=== PATIENT | male | born 1970 | race Caucasian/White ===

== ENCOUNTER 2019-08-14 22:46 | Emergency (ER) | payer SELFPAY ==
--- NOTE | 2019-08-14 00:20 | DI.RAD_ITS ---
EXAM: XR CHEST 2V PA LATERAL CLINICAL HISTORY: SOB. TECHNIQUE: 2D digital imaging was performed. COMPARISON: No exams were available for comparison FINDINGS: LUNGS: Clear. No pleural abnormality seen. HEART: Normal. MEDIASTINUM: Normal. OTHER FINDINGS:Normal. BONE:Normal. IMPRESSION: No acute pulmonary findings.
[2019-08-14 23:01] VITALS: BP 149/90; PULSE 110; RESP 24; TEMP 36.5; O2SAT 93
--- NOTE | 2019-08-14 23:16 | W.ED.GENAD ---
Discharge Plan Disposition Patient Disposition: HOME Condition: Stable Discharge Details Chief Complaint: SOB Clinical Impression: Shortness of breath Primary Care Provider: Shala Godoy ED Provider: Alec Dawson Home Meds and New Rx's Prescriptions: New prednisone 20 mg tablet 60 mg PO DAILY Qty: 15 RF: 0 Discharge Instructions Additional Instructions: You are being treated for possible copd. You need to follow up with a primary care provider for testing for COPD and also sleep apnea and I have placed you on our follow up list to try and help get set up with a primary care provider if you feel your shortness of breath is worsening despite the inhaler, or have severe pain or high fevers return to the emergency department Discharge Data Discharge Date/Time-TO BE ENTERED AT DEPARTURE: 08/15/19 02:55 Medical Decision Making <ELIDA Jackson - Last Filed: 08/15/19 23:53> Is a 49-year-old patient presenting to the emergency room this evening for complaints of acute shortness of breath which developed prior to arrival. Patient reports he had a normal day, worked at the [employer] had no difficulty working or dyspnea on exertion. Went home had a few beers then dinner went to bed. Patient awoke approximately 1-1/2 hours after going to bed feeling somewhat flushed and having difficulty breathing. Patient began taking his clothes off as he felt hot. Partner reports this is very atypical behavior. Patient reports he is aware of tonight's events. Patient denies any chest pain, or any other sites of pain. Patient does report a cough which he has had for greater than 1 month after having a viral illness and he attributed it to a bronchitis. Patient denies fevers or chills. Patient at this time reports he does feel dry mouth. Patient denies abdominal pain or distention. Denies bowel changes or blood in stools recently. Patient denies any abnormal palpitations or heart racing this evening. Patient reports he has otherwise been eating and drinking without difficulty. On exam patient's breath sounds are clear with somewhat diminished lung bases bilaterally. Patient does have mild increased respiratory effort per partner at the bedside. Patient's initial vitals do reveal tachycardia with a heart rate of 110 mild hypertension O2 sat of 93. Patient is a daily smoker. Patient takes no daily medications. Has no diagnosed medical problems. Labs ordered as well as chest x-ray, EKG and IV fluid. Signed out to Dr. Dawson who recommends DuoNeb as well as Solu-Medrol both ordered. <Alec Dawson MD - Last Filed: 08/15/19 02:45> labs and xray unremarkable and he feels much better and has no symptoms now, will continue to monitor and repeat troponin. Did feel better with neb so could have copd, does desaturate when sleeping as well so likely has undiagnosed sleep apnea pt remains stable and asymptoamtic, second troponin negative so feel he can be d/c'd. Placed on f/u list to see pcp gaby for workup of copd and also sleep apnea, return precautions given Imaging Data Radiologic Study: Attestation: I personally reviewed and interpreted this imaging study as follows: Imaging: X-Ray Radiologist's impression: no acute findings Lab Data Lab results reviewed: Yes I reviewed the patient's lab results. ECG Data Attestation: I personally reviewed and interpreted this ECG (s) as follows: Prior ECG tracings: not available for review Interpretation: sinus rhythm, rate of 101 HPI <ELIDA Jackson - Last Filed: 08/15/19 23:53> General Date/Time Provider Initiated Documentation: 08/14/19 22:47. HPI Narrative: Is a 49-year-old patient presenting to the emergency room this evening for shortness of breath. 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 Went home had 2 drinks then dinner. Patient went to bed. Patient awoke about an hour and a half after laying down for bed with acute onset of shortness of breath. Patient felt flushed during that time but denied any sites of pain. Patient denied headache, dizziness, nausea, vomiting, chest pain, back pain, jaw pain or radiating symptoms. Denies abdominal pain. Denies any history of GI bleeding. Patient reports he has been eating and drinking without difficulty recently. Patient reports he has had a cough for approximately 1 to 1-1/2 months which began as a cold. Patient felt that the cough was just persistent and lingering. Patient denies any production of cough. Patient is a smoker. Denies any known medical problems. Takes no daily medications. Patient has no other concerns or complaints at this time Related Data Home Medications Medication Instructions Recorded Confirmed prednisone 60 mg PO DAILY #15 tab 08/15/19 Previous Rx's Medication Instructions Recorded prednisone 60 mg PO DAILY #15 tab 08/15/19 Allergies Allergy/AdvReac Type Severity Reaction Status Date / Time Cephalosporins AdvReac Severe Anaphylaxsi Unverified 08/14/19 23:10 s General Stated Complaint: SOB TOM: 3 Review of Systems <ELIDA Jackson - Last Filed: 08/15/19 23:53> All systems reviewed & are unremarkable except as noted in HPI and below Constitutional Constitutional: Denies chills, Denies fatigue, Denies fever(s), Denies headache(s) and Denies malaise ENT Ears, Nose, Mouth, and Throat: Denies headache(s), Reports nasal congestion and Denies sore throat Cardiovascular Cardiovascular: Denies chest pain, Denies diaphoresis, Denies syncope, Denies rapid heart rate, Denies irregular heart rhythm, Denies palpitations and Reports dyspnea Respiratory Respiratory: Reports cough, Reports dyspnea and Denies wheezing Gastrointestinal Gastrointestinal: Denies abdominal pain, Denies diarrhea, Denies nausea and Denies vomiting Neurologic Neurologic: Denies syncope and Denies headache(s) Endocrine Endocrine: Denies fatigue and Denies palpitations Allergic/Immunologic Allergic/Immunologic: Denies wheezing PFSH <ELIDA Jackson - Last Filed: 08/15/19 23:53> Social History Smoking/Tobacco Use Status: Current every day Tobacco Type: cigarettes Alcohol Intake: current Alcohol Intake frequency: 3 or more drinks per day Alcohol type: beer Substance use type: does not use Do you feel safe in your relationship?: Yes Exam <ELIDA Jackson - Last Filed: 08/15/19 23:53> Narrative Exam Narrative: CONST: Flushed. Alert and oriented. Smells of EtOH HENMT: Head nomocephalic, normal to inspection. Atraumatic. Hearing grossly normal. External ear canal no erythema or swelling. TM normal bilaterally. Nose normal to inspection. No rhinnorhea. Normal facial exam. Oral mucosa normal. Tounge normal. Dentition normal. Erythema of posterior oropharynx. Uvula midline. EYES: General normal appearance. Alignment normal. Eyelids normal. Conjunctiva normal. Sclera normal. PERRL. NECK: Normal visual inspection. FROM. No lymphadenopathy. Trachea midline. No Midline tenderness. CHEST: Normal insepection of the chest. RESP: Normal respiratory effort. Speaking full sentences. No cough. No wheezing. No retractions. Clear to auscaltation. Breath sound equal and present bilaterally. Breath sounds are somewhat diminished at the bases bilaterally CARDIO: No JVD. Normal PMI. Regular Rate. Regular Rhythm. Normal peripheral pulses. GI: Normal inspection of abdomen. No distension. Soft. Nontender. Bowel sounds present in all 4 quadrants. No rebound. No gaurding. MUSCULOSKELETAL: Normal Gait. FROM of all extremities. Distal neurovascularly intact. Sensation intact distally. No lower leg edema Course <ELIDA Jackson - Last Filed: 08/15/19 23:53> Vital Signs Vital signs: Vital Signs Temperature 36.5 C 08/14/19 23:01 Pulse 110 H 08/14/19 23:01 Respiratory Rate 24 08/14/19 23:01 Blood Pressure 149/90 H 08/14/19 23:01 Pulse Oximetry 93 L 08/14/19 23:01 Temperature 36.5 C 08/14/19 23:01 Temperature Source Temporal Artery Scan 08/14/19 23:01 Pulse 110 H 08/14/19 23:01 Respiratory Rate 24 08/14/19 23:01 Respiratory Effort 08/14/19 23:06 Respiratory Pattern Normal 08/14/19 23:06 Blood Pressure 149/90 H 08/14/19 23:01 Pulse Oximetry 93 L 08/14/19 23:01 Oxygen Delivery Method Room Air 08/14/19 23:01 Oxygen Flow Rate 0 08/14/19 23:01 Pain Level 0 08/14/19 23:01 Sign Out <ELIDA Jackson - Last Filed: 08/15/19 23:53> Sign Out Data: Sign Out Comment: Patient initially evaluated then signed out pending all test results after initial evaluation. Patient complaining of shortness of breath acutely developing in the last hour. Has had cough x1 month after viral illness. Last updated by Ora Segura PA at 08/14/19 23:34
[2019-08-14 23:35] LABS: Abs Immature Grans 0.01 k/cumm (0.0-0.09); Absolute Basophil Count 0.05 k/cumm (0.0-0.2); Absolute Eosinophil Count 0.18 k/cumm (0.0-0.7); Absolute Lymphocyte Count 2.55 k/cumm (1.2-3.4); Absolute Monocyte Count 0.67 k/cumm (0.11-0.7); Absolute Neutrophil Count 4.64 k/cumm (1.2-6.7); Basophils % 0.6; Eosinophils % 2.2; HCT 45.3 % (40.0-50.0); HGB 15.5 g/dL (13.5-17.5); Immature Grans % 0.1 %; Lymphocytes % 31.5; Mean Corp. HGB Concentration 34.2 g/dL (32.0-36.0); Mean Corpuscular Hemoglobin 32.7 pg (27.0-33.0); Mean Corpuscular Volume 95.6 fL (80-95); Mean Platelet Volume 10.5 fL (8.0-11.0); Monocytes % 8.3; Neutrophils % 57.3; Platelet Count 170 x1000/uL (130-400); RBC 4.74 m/cumm (4.50-6.00); RBC Distribution Width 12.8 % (11.8-14.1)
[2019-08-14] MEDS: methylPREDNISolone SUCC 125 MG VIAL IVP (23:37)
[2019-08-14] MEDS: Albuterol/Ipratropium 3 ML UPD VIAL UPD (23:39)
[2019-08-14 23:44] VITALS: BP 132/64; PULSE 83; RESP 22; O2SAT 96
[2019-08-14] MEDS: Normal Saline 1,000 ML 1000 ML IV (23:44)
[2019-08-14 23:48] LABS: ALT 21 U/L (16-63); AST 21 U/L (15-37); Albumin 3.8 g/dL (3.4-5.0); Alkaline Phosphatase 58 U/L (46-116); Anion Gap 11.9 mmol/L (3-11); BUN 15 mg/dL (7-18); Bilirubin, Total 0.2 mg/dL (0.2-1.0); CO2 25.1 mmol/L (21.0-32.0); CREATININE 1.36 mg/dL (0.70-1.30); Calcium 8.3 mg/dL (8.5-10.1); Chloride 105 mmol/L (98-107); Estimated GFR 56.17 (mL/min/1.73m2); Glucose 116 mg/dL (74-106); NT-proBNP 36 pg/mL (<300); Potassium 3.8 mmol/L (3.5-5.1); Sodium 142 mmol/L (136-145)
[2019-08-14 23:49] LABS: Troponin I < 0.05 ng/Ml (<0.06)
[2019-08-14 23:57] LABS: D-Dimer 268 ng/mlFEU (<500)
[2019-08-15 00:09] VITALS: RESP 1; RESP 18; RESP 7
[2019-08-15 00:31] VITALS: BP 128/75; PULSE 92; RESP 18; O2SAT 94
--- NOTE | 2019-08-15 00:43 | DI.VRAD_ITS ---
PROCEDURE INFORMATION: Exam: XR Chest, 2 Views Exam date and time: 08/14/2019 12:23 AM Age: 49 years old Clinical indication: Shortness of breath TECHNIQUE: Imaging protocol: XR of the chest Views: 2 views. COMPARISON: No relevant prior studies available. FINDINGS: Lungs: Unremarkable. No consolidation. Pleural space: Unremarkable. No pleural effusion. No pneumothorax. Heart/Mediastinum: Unremarkable. No cardiomegaly. Bones/joints: Unremarkable. IMPRESSION: 1. No acute findings. 2. No acute infiltrates or consolidation. 3. No pulmonary edema. 4. No pleural effusions. Dictated and Authenticated by: Palomo Bob MD. Ordering:GINI Payan MD
--- NOTE | 2019-08-15 01:08 | NUR.NOTE ---
Nursing Note: When pt drifts off to sleep O2 SAT decreases to a low of 87%. Placed on O2 2L by MARINA and notified.
[2019-08-15 02:26] VITALS: BP 123/76; PULSE 108; RESP 20; O2SAT 94
[2019-08-15 02:36] LABS: Troponin I < 0.05 ng/Ml (<0.06)
== END 2019-08-15 02:55 | disposition home or self-care (01) ==
PROVIDERS: Physician Assistant; Emergency Provider Emergency Medicine; PCP Internal Medicine
DX: R06.02 Shortness of breath (principal); R05 Cough; F17.210 Nicotine dependence, cigarettes, uncomplicated
CPT/HCPCS: 36415; 36416; 80053; 82962; 93005; 94640; 96361; 96374; 99285; 71046; 83880; 84484; 85025; 85379; 93010; 99284; J2930; J7620

== ENCOUNTER 2020-01-03 20:27 | Emergency (ER) | payer SELFPAY ==
[2020-01-03] VITALS (21 sets, daily range): BP systolic 135–181; BP diastolic 78–102; PULSE 108–125; RESP 15–27; TEMP 36.7–37; O2SAT 90–98
--- NOTE | 2020-01-03 20:42 | W.ED.GENAD ---
Discharge Plan Disposition Patient Disposition: AGAINST MEDICAL ADVICE Condition: Stable Discharge Details Chief Complaint: SOB Clinical Impression: Shortness of breath Primary Care Provider: Shala Godoy ED Provider: Alec Dawson Home Meds and New Rx's Prescriptions: New albuterol sulfate 90 mcg/actuation aerosol powdr breath activated 2 inh IH Q4H PRN (Reason: shortness of breath or wheezing) Qty: 1 RF: 0 prednisone 20 mg tablet 60 mg PO DAILY 4 Days Qty: 12 RF: 0 Discharge Instructions Additional Instructions: I have placed you on our follow up list to get set up with a primary care provider if you feel more ill, have fevers or more difficulty breathing or chest pain return to the emergency department Medical Decision Making 49 yo male with chronic history of smoking no diagnosed medical problems though doesn't see a provider regularly comes in with shortness of breath starting about an hour ago. Denies chest pain, fevers, sick contacts or travel. Was seen here in August and treated for undiagnosed copd with improvement but never follow up with a pcp and didn't take the prednisone. He has wheezing at the bases bilaterally, no jvd, no leg swelling or murmurs, denies ivdu. Suspect copd will tx with nebs and steroids. Unlikely acs, heart score is 2. Will obtain CTA to eval for PE as well score is moderate given PE just as likely a diagnosis as others. pt feels much better after neb and steroids and labs and imaging unremarkable. I recommended repeat troponin and ecg but he declined, he has capacity to make his own decisions and understands risks of leaving including and disability and still wants to leave against my medical advise. Will have him get set up with pcp gaby and return precautions given Differential Diagnosis Differential Diagnosis: copd, sleep apnea, pna Medical Records Medical records reviewed: Yes I reviewed the patient's medical records. Imaging Data Radiologic Study: Attestation: I personally reviewed and interpreted this imaging study as follows: Imaging: CT Scan Radiologist's impression: IMPRESSION: 1. Limited examination of the pulmonary arteries. However, no large pulmonary embolus is seen. 2. No evidence of consolidation pneumonia. Lab Data Lab results reviewed: Yes I reviewed the patient's lab results. ECG Data Attestation: I personally reviewed and interpreted this ECG (s) as follows: Prior ECG tracings: not available for review Interpretation: sinus tachycardia rate of 119, pr 162 qtc 436 HPI General Mode of arrival: ambulatory. Date/Time Provider Initiated Documentation: 01/03/20 20:32. Limitations to Documentation: no limitations. Information obtained by: patient. History of Present Illness 49 year old M presents to the emergency department with the chief complaint of shortness of breath, described as moderate, No relieving factors improve symptom(s), No exacerbating factors reported . Patient did receive the following treatments prior to arrival, none Related Data Home Medications Medication Instructions Recorded Confirmed albuterol sulfate 2 inh IH Q4H PRN #1 each 01/03/20 prednisone 60 mg PO DAILY 4 Days #12 tab 01/03/20 Previous Rx's Medication Instructions Recorded albuterol sulfate 2 inh IH Q4H PRN #1 each 01/03/20 prednisone 60 mg PO DAILY 4 Days #12 tab 01/03/20 Allergies Allergy/AdvReac Type Severity Reaction Status Date / Time Cephalosporins AdvReac Severe Anaphylaxsi Unverified 01/03/20 20:40 s General Stated Complaint: SOB TOM: 3 Review of Systems All systems reviewed & are unremarkable except as noted in HPI and below Constitutional Constitutional: Denies chills, Denies fever(s) and Denies weakness Cardiovascular Cardiovascular: Denies chest pain Respiratory Respiratory: Denies cough Gastrointestinal Gastrointestinal: Denies abdominal pain, Denies nausea and Denies vomiting Musculoskeletal Musculoskeletal: Denies joint swelling Neurologic Neurologic: Denies weakness Psychiatric Psychiatric: Denies depression [facility] Social History Smoking/Tobacco Use Status: Current every day Tobacco Type: cigarettes Alcohol Intake: current Alcohol Intake frequency: 3 or more drinks per day Alcohol type: beer Drug use: Never Substance use type: does not use Do you feel safe at home: Yes Do you feel safe in your relationship?: Yes Exam Const General: no acute distress Orientation: alert HENMT Head: normal to inspection Ears: external ears normal General nose exam: external nose normal Mouth: moist mucous membranes Eyes General: appearance normal, both eyes and all related structures Neck Neck: normal visual inspection Resp Effort & Inspection: normal respiratory effort Auscultation: wheezes Cardio Rate: regular rate Skin General skin exam: no rashes or lesions noted Neuro General: patient alert and patient oriented x3 Extrem General: normal to inspection Psych Mental Status: mental status grossly normal Course Vital Signs Vital signs: Vital Signs Temperature 37.0 C 01/03/20 20:31 Pulse 124 H 01/03/20 20:31 Respiratory Rate 24 01/03/20 20:31 Blood Pressure 181/102 H 01/03/20 20:31 Pulse Oximetry 95 01/03/20 20:31 Temperature 37.0 C 01/03/20 20:31 Pulse 124 H 01/03/20 20:31 Respiratory Rate 24 01/03/20 20:35 Respiratory Effort Accessory Muscle Use 01/03/20 20:35 Respiratory Depth Normal 01/03/20 20:35 Respiratory Pattern Normal 01/03/20 20:35 Blood Pressure 181/102 H 01/03/20 20:31 Pulse Oximetry 95 01/03/20 20:31 Oxygen Delivery Method Room Air 01/03/20 20:31 Oxygen Flow Rate 0 01/03/20 20:31 Pain Level 0 01/03/20 20:31
[2020-01-03] MEDS: methylPREDNISolone SUCC 125 MG VIAL IVP (20:50)
[2020-01-03] MEDS: Albuterol/Ipratropium 3 ML UPD VIAL UPD (20:51)
[2020-01-03 20:56] LABS: BE (Venous) -0.9 mmol/L (-3-3); HCO3 (Venous) 24 mmol/L (22-28); O2 Sat (Venous) 91 % (70-80); TCO2 (Venous) 21 mmol/L (22-29); pCO2 (Venous) 39 mm/Hg (34-47); pO2 (Venous) 57 mm/Hg (28-44)
[2020-01-03 20:58] LABS: Abs Immature Grans 0.04 k/cumm (0.0-0.09); Absolute Basophil Count 0.03 k/cumm (0.0-0.2); Absolute Eosinophil Count 0.26 k/cumm (0.0-0.7); Absolute Lymphocyte Count 2.53 k/cumm (1.2-3.4); Absolute Monocyte Count 0.72 k/cumm (0.11-0.7); Absolute Neutrophil Count 6.46 k/cumm (1.2-6.7); Basophils % 0.3; Eosinophils % 2.6; HCT 46.7 % (40.0-50.0); HGB 16.5 g/dL (13.5-17.5); Immature Grans % 0.4 %; Lymphocytes % 25.2; Mean Corp. HGB Concentration 35.3 g/dL (32.0-36.0); Mean Corpuscular Hemoglobin 33.5 pg (27.0-33.0); Mean Corpuscular Volume 94.7 fL (80-95); Mean Platelet Volume 10.1 fL (8.0-11.0); Monocytes % 7.2; Neutrophils % 64.3; Platelet Count 184 x1000/uL (130-400); RBC 4.93 m/cumm (4.50-6.00); White Blood Cell Count 10.04 k/cumm (4.4-10.8)
[2020-01-03 21:19] LABS: Albumin 3.7 g/dL (3.4-5.0); Alkaline Phosphatase 78 U/L (46-116); Anion Gap 12.4 mmol/L (3-11); BUN 8 mg/dL (7-18); Bilirubin, Total 0.3 mg/dL (0.2-1.0); CO2 23.6 mmol/L (21.0-32.0); CREATININE 0.99 mg/dL (0.70-1.30); Calcium 8.4 mg/dL (8.5-10.1); Chloride 103 mmol/L (98-107); Glucose 128 mg/dL (74-106); Magnesium 2.2 mg/dL (1.8-2.4); NT-proBNP 45 pg/mL (<300); Potassium 3.7 mmol/L (3.5-5.1); Sodium 139 mmol/L (136-145); Total Protein 7.3 g/dL (6.4-8.2)
[2020-01-03 21:20] LABS: Troponin I < 0.05 ng/mL (<0.06)
[2020-01-03] MEDS: Normal Saline Flush 10 ML SYR IVP (21:28)
[2020-01-03] MEDS: Normal Saline - Diluent 50 ML VIAL IV (21:29)
[2020-01-03 21:33] LABS: AST 26 U/L (15-37)
[2020-01-03 21:34] LABS: ALT 22 U/L (16-63)
[2020-01-03] MEDS: Omnipaque 350 MG/ML 100 ML BTL IJ (21:35)
--- NOTE | 2020-01-03 21:36 | DI.CT_ITS ---
EXAM: CT CHEST PE CTA CLINICAL HISTORY: shortness of breath. TECHNIQUE: Imaging Protocol: Axial CT angiography was performed with multislice acquisition and mul tiplanar and/or 3D reconstructions. CONTRAST MATERIAL: Intravenous: Omnipaque 350 Contrast volume:80 ml COMPARISON: No exams were available for comparison FINDINGS: Pulmonary Arteries: Pulmonary arteries are suboptimally opacified due to poor contrast bolus timing. No evidence of filling defect to suggest pulmonary emboli. Tracheobronchial tree: Patent where visualized. Mediastinum and Mariela: No dominant adenopathy or fluid collection. Pulmonary parenchyma: No consolidation or dominant measurable mass.. Pleura: No effusion or pneumothorax. Heart: The heart is not dilated. No coronary artery calcifications are seen. Aorta: Thoracic aorta non-dilated. Upper abdomen: Unremarkable. Bones: Degenerative changes in the spine. Old left rib fractures. IMPRESSION: Suboptimal contrast bolus. No evidence of pulmonary embolism or other acute abnormality.. RADIATION DOSE DELIVERED: Total DLP DATA REPOSITORY: All CT scans at this facility are submitted to the National Radiology Data Registry (NRDR) Dose Index Registry (DIR) with the [employer] (ACR). RADIATION OPTIMIZATION: All CT scans at this facility use at least one of these dose optimization te chniques: automated exposure control; mA and/or kV adjustment per patient size (includes targeted exa ms where dose is matched to clinical indication); or iterative reconstruction.
[2020-01-03] MEDS: Normal Saline 1,000 ML 1000 ML IV (21:45)
--- NOTE | 2020-01-03 22:11 | DI.VRAD_ITS ---
PROCEDURE INFORMATION: Exam: CT Angiography Chest With Contrast Exam date and time: 01/03/2020 9:35 PM Age: 49 years old Clinical indication: Shortness of breath TECHNIQUE: Imaging protocol: Computed tomographic angiography of the chest with intravenous contrast. 3D rendering: MIP and/or 3D reconstructed images were created by the technologist. Radiation optimization: All CT scans at this facility use at least one of these dose optimization techniques: automated exposure control; mA and/or kV adjustment per patient size (includes targeted exams where dose is matched to clinical indication); or iterative reconstruction. Contrast material: [id number]; Contrast volume: 80 ml; Contrast route: INTRAVENOUS (IV); COMPARISON: CR XR CHEST 2V PA LATERAL 08/15/2019 12:22 AM FINDINGS: Limitations: The study is limited secondary to suboptimal contrast bolus. Pulmonary arteries: No large pulmonary emboli. Aorta: Unremarkable. No aortic aneurysm. No aortic dissection. Lungs: Mild linear atelectasis is seen in the right lung base. No lung consolidation. Pleural space: Unremarkable. No pneumothorax. No pleural effusion. Heart: Unremarkable. No cardiomegaly. No pericardial effusion. Lymph nodes: Unremarkable. No enlarged lymph nodes. 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 Soft tissues: Unremarkable. IMPRESSION: 1. Limited examination of the pulmonary arteries. However, no large pulmonary embolus is seen. 2. No evidence of consolidation pneumonia. Dictated and Authenticated by: Esther Talley MD. Ordering:MOLLY Michael MD
== END 2020-01-03 22:40 | disposition left against medical advice (07) ==
PROVIDERS: Emergency Provider Emergency Medicine; PCP Internal Medicine
DX: R06.02 Shortness of breath (principal); Z53.29 Procedure and treatment not carried out because of patient's decision for other reasons; J44.9 Chronic obstructive pulmonary disease, unspecified; F17.210 Nicotine dependence, cigarettes, uncomplicated
CPT/HCPCS: 36415; 71275; 80053; 82805; 93005; 94640; 96361; 96374; 99285; 81003; 83735; 83880; 84484; 85025; 93010; 99284; J2930; J3490; J7620

== ENCOUNTER 2020-01-07 13:23 | Emergency (ER) | payer OTHER, SELFPAY ==
[2020-01-07 13:29] VITALS: BP 178/100; PULSE 91; RESP 16; TEMP 36.6; O2SAT 96
--- NOTE | 2020-01-07 13:39 | W.ED.GENAD ---
Discharge Plan Disposition Patient Disposition: HOME Condition: Stable Discharge Details Chief Complaint: Orthopedic Clinical Impression: Right elbow tendinitis Primary Care Provider: Shala Godoy ED Provider: Bernadette Michelle Home Meds and New Rx's Prescriptions: Continued albuterol sulfate 90 mcg/actuation aerosol powdr breath activated 2 inh IH Q4H PRN (Reason: shortness of breath or wheezing) Qty: 1 RF: 0 prednisone 20 mg Tablet 60 mg PO DAILY RF: 0 Discharge Instructions Instructions: Tendinitis (ED) Additional Instructions: Rest, ice, and elevate the affected area as much as possible. Alternate tylenol and motrin as needed and directed for pain. Follow-up with your primary care doctor in 1 week. Return to the emergency department with any worsening or new concerning symptoms. Discharge Data Discharge Date/Time-TO BE ENTERED AT DEPARTURE: 01/07/20 14:57 Discharge Physician: Bernadette Michelle Medical Decision Making 49-year-old male presents with right elbow pain since yesterday after pulling a loaded branch off of a truck at work. Patient has tenderness to palpation, mild to moderate edema as well as pain with extension and supination and pronation to right medial epicondyle. Suspect most likely tendinitis. He is neurovascular intact. Given a dose of ibuprofen and referred for x-ray which was negative. Will treat for likely tendinitis with rest, ice, compression and elevation. Advised on importance of alternating Tylenol and NSAIDs. Advised to follow up with the primary care doctor for re-evaluation. Usual and customary return precautions given prior to discharge. Medical Records Medical records reviewed: Yes I reviewed the patient's medical records. Imaging Data Radiologic Study: Radiologist's impression: XR ELBOW RT COMPLETE CLINICAL HISTORY: pain/swelling medial epicondyle, r/o fx. TECHNIQUE: 2D digital imaging was performed. COMPARISON: No exams were available for comparison FINDINGS: BONES: No acute fracture is present. No bony destructive lesion is seen. JOINTS: The elbow is normally aligned. No joint effusion is seen. SOFT TISSUE: Normal. IMPRESSION: Unremarkable radiographs of the right elbow. HPI General Mode of arrival: ambulatory. Date/Time Provider Initiated Documentation: 01/07/20 13:32. Limitations to Documentation: no limitations. Information obtained by: patient. HPI Narrative: Patient is a 49-year-old male presents with right elbow pain since yesterday after pulling a loaded ramp off of a truck. Patient admits to pain in the right inner elbow that is worse with extending and twisting his arm. He denies any known fever. He denies any direct blunt injury to his right elbow. He denies any shoulder or wrist pain. Related Data Home Medications Medication Instructions Recorded Confirmed albuterol sulfate 2 inh IH Q4H PRN #1 each 01/03/20 01/07/20 prednisone 60 mg PO DAILY 01/07/20 01/07/20 Previous Rx's Medication Instructions Recorded albuterol sulfate 2 inh IH Q4H PRN #1 each 01/03/20 Allergies Allergy/AdvReac Type Severity Reaction Status Date / Time Cephalosporins AdvReac Severe Anaphylaxsi Unverified 01/07/20 13:33 s General Stated Complaint: Orthopedic TOM: 4 Review of Systems All systems reviewed & are unremarkable except as noted in HPI and below Constitutional Constitutional: Reports as per HPI, Denies chills and Denies fever(s) Eyes Eyes: Denies blurry vision ENT Ears, Nose, Mouth, and Throat: Denies dizziness, Denies sore throat and Denies throat swelling Cardiovascular Cardiovascular: Denies chest pain and Denies dyspnea Respiratory Respiratory: Denies cough and Denies dyspnea Gastrointestinal Gastrointestinal: Denies abdominal pain, Denies diarrhea and Denies vomiting Genitourinary Genitourinary: Denies hematuria and Denies dysuria Musculoskeletal Musculoskeletal: Denies back pain and Denies numbness Integumentary/Breasts Skin/Breast: Denies lesions and Denies rash Neurologic Neurologic: Denies dizziness, Denies localized weakness and Denies numbness Allergic/Immunologic Allergic/Immunologic: Denies throat swelling ON LICENSE OF [facility] Social History Smoking/Tobacco Use Status: Current every day Tobacco Type: cigarettes Alcohol Intake: current Alcohol Intake frequency: 3 or more drinks per day Alcohol type: beer Drug use: Never Substance use type: does not use Do you feel safe at home: Yes Do you feel safe in your relationship?: Yes Exam Const General: cooperative, healthy appearing and no acute distress HENMT Head: normal to inspection Mouth: oral mucosae normal Eyes General: appearance normal, both eyes and all related structures Neck Neck: normal visual inspection Resp Effort & Inspection: normal respiratory effort and able to speak in complete sentences Cardio Rate: regular rate Skin General skin exam: no rashes or lesions noted Neuro General: patient alert, patient awake and patient oriented x3 Motor: muscle tone normal throughout Extrem Elbow/forearm/wrist images: 1. Localized area of tenderness and edema noted to right medial epicondyle area and area just superior. There is no crepitus, erythema, ecchymosis, rash or lesions. Other: No pain with range of motion at right shoulder, right wrist. Right radial and ulnar pulses intact. Pain with full extension and supination and pronation at right medial elbow. Psych Appearance: grossly normal Affect: normal affect Course Vital Signs Vital signs: Vital Signs Temperature 97.9 F 01/07/20 13:29 Pulse 91 H 01/07/20 13:29 Respiratory Rate 16 01/07/20 13:29 Blood Pressure 178/100 H 01/07/20 13:29 Pulse Oximetry 96 01/07/20 13:29 Temperature 97.9 F 01/07/20 13:29 Temperature Source Skin 01/07/20 13:29 Pulse 91 H 01/07/20 13:29 Respiratory Rate 16 01/07/20 13:29 Respiratory Effort Non-Labored 01/07/20 13:29 Blood Pressure 178/100 H 01/07/20 13:29 Blood Pressure Position Sitting 01/07/20 13:29 Pulse Oximetry 96 01/07/20 13:29 Oxygen Delivery Method Room Air 01/07/20 13:29 Oxygen Flow Rate 0 01/07/20 13:29 Pain Level 3 01/07/20 13:29
--- NOTE | 2020-01-07 14:02 | DI.RAD_ITS ---
EXAM: XR ELBOW RT COMPLETE CLINICAL HISTORY: pain/swelling medial epicondyle, r/o fx. TECHNIQUE: 2D digital imaging was performed. COMPARISON: No exams were available for comparison FINDINGS: BONES: No acute fracture is present. No bony destructive lesion is seen. JOINTS: The elbow is normally aligned. No joint effusion is seen. SOFT TISSUE: Normal. IMPRESSION: Unremarkable radiographs of the right elbow. DATA REPOSITORY: RADIATION DOSE DELIVERED:
[2020-01-07] MEDS: Ibuprofen 600 MG TAB PO (14:11)
[2020-01-07 14:56] VITALS: BP 160/88; PULSE 91; RESP 16; TEMP 36.6
== END 2020-01-07 14:57 | disposition home or self-care (01) ==
PROVIDERS: Emergency Provider Physician Assistant; PCP Internal Medicine
DX: M77.8 Other enthesopathies, not elsewhere classified (principal); M25.521 Pain in right elbow; X50.0XXA Overexertion from strenuous movement or load, initial encounter; Y99.0 Civilian activity done for income or pay
CPT/HCPCS: 99284; 73080; 99283

== ENCOUNTER 2021-02-22 13:13 | Emergency (ER) | payer OTHER, SELFPAY ==
[2021-02-22 13:16] VITALS: BP 175/99; PULSE 89; RESP 18; TEMP 36.4; O2SAT 96
[2021-02-22] MEDS: Lidocaine/Epinephri/Tetracaine Topical Gel 3 ML TP (13:44)
--- NOTE | 2021-02-22 14:03 | W.ED.GENAD ---
Discharge Plan Disposition Patient Disposition: HOME Condition: Stable Discharge Details Clinical Impression: Laceration of thumb Primary Care Provider: Unknown,Unknown ED Provider: Kee Knight Home Meds and New Rx's Prescriptions: Continued ascorbic acid (vitamin C) [Vitamin C] 500 mg Tablet 500 mg PO TID RF: 0 Discharge Instructions Instructions: Laceration (ED) Additional Instructions: Laceration has properly dressed. There is no need for suturing. Please wear dressing and splint, change dressing daily, advance activity as tolerated. [id number] Tylenol and/or Motrin as directed for discomfort. Please watch for new or worsening symptoms and return to the ER for any concerns Medical Decision Making 50-year-old gentleman presents with a left thumb injury he sustained at work just prior to arrival. Neuro, vascular, tendon intact. No obvious bony abnormality. 5/5 strength. Tetanus status up-to-date. Discussed options. Will apply LET, then thoroughly cleaned, then dressed and apply a splint. I provided patient with a modified duty work note for the next week. Thumb was thoroughly cleaned and dressed appropriately. Splint applied. Patient tolerated well. No additional questions or concerns Medical Records Medical records reviewed: Yes I reviewed the patient's medical records. HPI General Mode of arrival: ambulatory. Date/Time Provider Initiated Documentation: 02/22/21 13:13. Limitations to Documentation: no limitations. Information obtained by: patient. HPI Narrative: This is a 50-year-old gentleman, [id number], tetanus status up-to-date, presenting for a left thumb laceration. Patient states that just prior to arrival while at work a chisel slipped and he sustained a cut to his left thumb, taking out the top layer of the skin. Initially there is moderate bleeding but with pressure he has the bleeding controlled. He denies any other injury. Reports a mild dull burning sensation. Denies numbness, tingling, weakness. Related Data Home Medications Medication Instructions Recorded Confirmed ascorbic acid (vitamin C) [Vitamin 500 mg PO TID 02/22/21 02/22/21 C] Allergies Allergy/AdvReac Type Severity Reaction Status Date / Time Cephalosporins AdvReac Severe Anaphylaxsi Unverified 02/22/21 13:22 s General Stated Complaint: Laceration TOM: 4 Review of Systems Constitutional Constitutional: Denies fever(s) Musculoskeletal Musculoskeletal: Denies arthralgias, Denies numbness, Denies stiffness and Denies tingling Integumentary/Breasts Skin/Breast: Denies erythema Neurologic Neurologic: Denies numbness and Denies tingling [facility] Surgical History RIGHT SHOULDER SURGERY 04/2009; [facility] Family History Mother Diabetes Father Heart disease Sister No problems noted. Sister No problems noted. Sister No problems noted. Sister No problems noted. Son No problems noted. Son No problems noted. Son No problems noted. Son Asthma Social History Smoking/Tobacco Use Status: Former Tobacco Use Quit Date: 01/24/21 Smoking risk assessment performed?: Yes Alcohol Intake: current Alcohol Intake frequency: 3 or more drinks per day Alcohol type: beer Drug use: Never Substance use type: does not use Do you feel safe at home: Yes Do you feel safe in your relationship?: Yes Exam Const General: cooperative, healthy appearing, comfortable and no acute distress Orientation: alert and awake HENMT Head: normal to inspection, normocephalic and atraumatic Eyes Conjunctivae: conjunctivae normal Neck Neck: normal visual inspection, trachea midline and supple Resp Effort & Inspection: normal respiratory effort and able to speak in complete sentences Cardio Rate: regular rate Rhythm: regular rhythm Skin General skin exam: no rashes or lesions noted Neuro General: patient alert, patient awake, moves all extremities and no focal motor deficits Cognition: normal cognition Speech: speech normal Gait: normal gait Motor: muscle tone normal throughout Sensory Exam: no sensory deficits noted Extrem General: full ROM and capillary refill normal Hand/finger images: 1. 2-1/2 cm abrasion, slightly deeper along the proximal aspect. There is only a slight small trickle of blood, no arterial bleed. There is no laceration to repair. Full range of motion. 5-5 strength. Neuro, vascular, tendon intact. No bony point tenderness. Normal radial pulse and capillary refill Psych Appearance: grossly normal Mental Status: mental status grossly normal Course Vital Signs Vital signs: Vital Signs Temperature 36.4 C L 02/22/21 13:16 Pulse 89 02/22/21 13:16 Respiratory Rate 18 02/22/21 13:16 Blood Pressure 175/99 H 02/22/21 13:16 Pulse Oximetry 96 02/22/21 13:16 Temperature 36.4 C L 02/22/21 13:16 Temperature Source Skin 02/22/21 13:16 Pulse 89 02/22/21 13:16 Respiratory Rate 18 02/22/21 13:16 Respiratory Effort Non-Labored 02/22/21 13:24 Blood Pressure 175/99 H 02/22/21 13:16 Blood Pressure Position Sitting 02/22/21 13:16 Pulse Oximetry 96 02/22/21 13:16 Oxygen Delivery Method Room Air 02/22/21 13:16 Oxygen Flow Rate 0 02/22/21 13:16 Pain Level 0 02/22/21 13:16
== END 2021-02-22 14:25 | disposition home or self-care (01) ==
PROVIDERS: Emergency Provider Physician Assistant
DX: S61.012A Laceration without foreign body of left thumb without damage to nail, initial encounter (principal); W27.0XXA Contact with workbench tool, initial encounter; Y99.0 Civilian activity done for income or pay
CPT/HCPCS: 29130; 99283

== ENCOUNTER 2021-05-14 22:11 | Emergency (ER) | payer BC, SELFPAY ==
[2021-05-14] VITALS (8 sets, daily range): BP systolic 134–212; BP diastolic 83–120; PULSE 98–120; RESP 6–24; TEMP 36.2; O2SAT 92–96
--- NOTE | 2021-05-14 22:15 | RT.EKG_ITS ---
APPROVED REPORT Exam: Resting ECG Reason for Exam: SOB Patient Location: E HR:111 bpm ECG Measurements Heart Rate 111 AXIS TX 169 P 82 QRSd 82 QRS 80 QT 326 T 41 QTc 442 Conclusion Sinus tachycardia...rate> 99 Probable left atrial enlargement...P >50mS, <-0.10mV V1
--- NOTE | 2021-05-14 22:15 | DI.RAD_ITS ---
Exam(s) XR PORTABLE CHEST AP EXAM: XR PORTABLE CHEST AP CLINICAL HISTORY: SOB TECHNIQUE: 2D digital imaging was performed of the chest. One image was obtained. An AP view was ob tained. COMPARISON: CR,XR XR CHEST 2V PA LATERAL from 08/15/2019 FINDINGS: MEDIASTINUM: Normal. HEART: Normal. PULMONARY VASCULATURE: Normal. LUNGS: Clear. PLEURAL SPACE: No pleural effusion or pneumothorax. BONE:Within normal limits for the patient's age. Stable right AC joint separation. OTHER FINDINGS:Normal. IMPRESSION: No acute pulmonary findings. DATA REPOSITORY: RADIATION DOSE DELIVERED:
[2021-05-14] MEDS: Normal Saline 500 ML IV (22:25)
--- NOTE | 2021-05-14 22:33 | ED.GENADUL_ITS ---
Discharge Plan Disposition Patient Disposition: HOME Condition: Good Discharge Details Clinical Impression: Dyspnea, unspecified Primary Care Provider: Unknown,Unknown ED Provider: Ron Grande Home Meds and New Rx's Prescriptions: No Action ascorbic acid (vitamin C) [Vitamin C] 500 mg Tablet 500 mg PO TID RF: 0 Discharge Instructions Instructions: Dyspnea (ED) Additional Instructions: Your work-up tonight is reassuring with no significant laboratory abnormalities and normal chest x-ray and EKG. Blood pressure is a little high so we will help arrange follow-up with primary care. Expect a phone call from care management next week. Return to the ED for any new or worsening symptoms. Referrals: Care Management [Provider Group] Medical Decision Making <Nils Reynoso MD - Last Filed: 05/14/21 22:38> This is a 51-year-old male, smoker, who presents with what he states was fairly transient but abrupt onset of anterior chest pressure and shortness of breath tonight after eating dinner. States he has been well and not otherwise ill. He does state he has chronic and persistently elevated blood pressure but does not see primary care regularly. Patient arrives to the ER with his subjective complaints improving, he is noted to have a pulse of 118 blood pressure 180/100. He is afebrile and oxygenating normally on room air. Patient's exam is essentially reassuring. We did discuss his chronically elevated blood pressure and the need for follow-up as well as consideration to decrease alcohol use. More importantly today in the ER, would consider ACS, pulmonary embolism, and must exclude COVID-19. Patient IV established, screening labs, EKG obtained and he is referred for laboratory testing and chest x-ray. As patient arrives prior to change of shift, will sign out to Dr. Grande pending review of diagnostic studies and reevaluation. <Ron Grande MD - Last Filed: 05/15/21 02:00> Patient signed out to me pending labs and imaging as well as repeat EKG and troponin. Chest x-ray is unremarkable with no acute pathology. Laboratory studies are fine. Repeat EKG is unchanged. Repeat troponin was flat. D-dimer negative. Patient's blood pressure remained in the 140/90 range. He does need primary care follow-up so will refer to care management to assist with this. Return to ED for any new or worsening symptoms. Lab Data Lab results reviewed: Yes I reviewed the patient's lab results. ECG Data Attestation: I personally reviewed and interpreted this ECG (s) as follows: Prior ECG tracings: available for review Interpretation: see EKG HPI <Nils Reynoso MD - Last Filed: 05/14/21 22:38> General Mode of arrival: ambulatory . Date/Time Provider Initiated Documentation: 05/14/21 22:12 . Limitations to Documentation: no limitations . Information obtained by: patient . History of Present Illness 51 year old M presents to the emergency department with the chief complaint of Shortness of breath at home with chest tightness, now improving, described as moderate, Quality is described as dull, and is localized to the chest. Patient reports no radiation. Patient started experiencing this minute(s) and it has been other (Improving). No relieving factors improve symptom(s), No exacerbating factors reported . Patient notes shortness of breath; denies cough, fever/chills, loss of appetite and nausea/vomiting. Patient did receive the following treatments prior to arrival, none Related Data Home Medications Medication Instructions Recorded Confirmed ascorbic acid (vitamin C) [Vitamin 500 mg PO TID 02/22/21 05/14/21 C] Allergies Allergy/AdvReac Type Severity Reaction Status Date / Time Cephalosporins AdvReac Severe Anaphylaxsi Unverified 05/14/21 22:19 s General Stated Complaint: SOB TOM: 3 Review of Systems <Nils Reynoso MD - Last Filed: 05/14/21 22:38> Narrative: No recent travel or illness. No lower extremity pain or swelling. States he always has high blood pressure. Drinks 6 beers per day. Recently stopped smoking 2 packs/day. Denies recent illness. Immunized fully against COVID-19. 8 systems reviewed and otherwise negative. PFSH <Nils Reynoso MD - Last Filed: 05/14/21 22:38> Surgical History RIGHT SHOULDER SURGERY 04/2009; [facility] Family History Mother Diabetes Father Heart disease Sister No problems noted. Sister No problems noted. Sister No problems noted. Sister No problems noted. Son No problems noted. Son No problems noted. Son No problems noted. Son Asthma Social History Smoking/Tobacco Use Status: Former Tobacco Use Quit Date: 01/24/21 Smoking risk assessment performed?: Yes Alcohol Intake: current Alcohol Intake frequency: 3 or more drinks per day Alcohol type: beer Drug use: Never Substance use type: does not use Do you feel safe at home: Yes Do you feel safe in your relationship?: Yes Exam <Nils Reynoso MD - Last Filed: 05/14/21 22:38> Narrative Exam Narrative: GEN: awake, alert, oriented 3. Pleasant, well groomed, interactive. HEAD: Normocephalic, atraumatic ENT: Mucous membranes moist, oropharynx unremarkable, External ear exam unremarkable EYES: PERRL, EOMI NECK: Full ROM, no TRICIA, no menigismus CHEST/RESP: Nontender, clear to auscultation bilateral, no wheeze/rhonchi/rales CARDIOVASCULAR: Regular and tachycardic, no murmur, rub jill. 2+ Rad pulse bilateral ABDOMEN: Soft, nontender, no mass. +Bowel sounds EXT: Full ROM, no edema, no rash Neuro: Grossly normal neurologic exam, conversant, interactive. Psych: Speech fluent, thoughts congruent, affect normal Course <Nils Reynoso MD - Last Filed: 05/14/21 22:38> Vital Signs Vital signs: Vital Signs Temperature 36.2 C L 05/14/21 22:16 Pulse 116 H 05/14/21 22:16 Respiratory Rate 24 05/14/21 22:16 Blood Pressure 186/107 H 05/14/21 22:16 Pulse Oximetry 95 05/14/21 22:16 Temperature 36.2 C L 05/14/21 22:16 Temperature Source Temporal Artery Scan 05/14/21 22:16 Pulse 116 H 05/14/21 22:16 Respiratory Rate 24 05/14/21 22:20 Respiratory Effort Short of Breath 05/14/21 22:20 Respiratory Depth Normal 05/14/21 22:20 Respiratory Pattern Normal 05/14/21 22:20 Blood Pressure 186/107 H 05/14/21 22:16 Blood Pressure Position Sitting 05/14/21 22:16 Pulse Oximetry 95 05/14/21 22:16 Oxygen Delivery Method Room Air 05/14/21 22:16 Oxygen Flow Rate 0 05/14/21 22:16 Pain Level 0 05/14/21 22:16 Sign Out <Nils Reynoso MD - Last Filed: 05/14/21 22:38> Sign Out Data: Sign Out Comment: Shortness of breath at home, improving. Follow-up diagnostic studies and reevaluation Last updated by Nils Reynoso MD at 05/14/21 22:40 PAWSS <Nils Reynoso MD - Last Filed: 05/14/21 22:38> Have you Been Recently Intoxicated or Drunk Within the Last 30 days?: No Have you Ever Experienced Previous Episodes of Alcohol Withdrawal?: No Have you ever Experienced Withdrawal Seizures?: No Have you ever Experienced Delirium Tremens(DT)s?: No Have you ever undergone Alcohol Rehabilitation Treatment (i.e, inpt ot outpatient treatment programs)?: No Have you ever Experienced Blackouts?: No Have you ever Combined Alcohol with other Downers within the last 90 days?: No Have you ever Combined Alcohol with any other Substance of Abuse during the last 90 days?: No Positive Blood Alcohol level on Presentation? [PCS.BAL]: No Evidence of Increased Autonomic Activity (i.e. HR>120, tremor, sweating, agitation, nausea)?: No Result: 0
[2021-05-14 22:46] LABS: Source Nasal/Nares
--- NOTE | 2021-05-14 22:46 | NUR.NOTE ---
Nursing Note: pt needs to be set up with a pcp and the referral was given to care management
[2021-05-14 22:50] LABS: Abs Immature Grans 0.02 10^3/uL (0.0-0.06); Absolute Basophil Count 0.08 10^3/uL (0.0-0.2); Absolute Eosinophil Count 0.25 10^3/uL (0.0-0.7); Absolute Lymphocyte Count 1.89 10^3/uL (1.2-3.4); Absolute Neutrophil Count 4.98 10^3/uL (1.2-6.7); Eosinophils % 3.2; HGB 14.8 g/dL (13.5-17.5); Immature Grans % 0.3; Lymphocytes % 24.5; MCH 32.5 pg (27.0-33.0); MCHC 32.9 % (32.0-36.0); MCV 98.9 fL (80-95); MPV 10.4 fL (8.0-11.0); Monocytes % 6.5; Neutrophils % 64.5; Nucleated RBC 0 %; Platelet Count 161 10^3/uL (130-400); RBC 4.55 10^6/uL (4.36-5.78); RDW 11.8 % (11.8-14.1); WBC 7.72 10^3/uL (4.4-10.8)
--- NOTE | 2021-05-14 23:13 | DI.VRAD_ITS ---
PROCEDURE INFORMATION: Exam: XR Chest Exam date and time: 05/14/2021 10:22 PM Age: 51 years old Clinical indication: Other: SOB TECHNIQUE: Imaging protocol: XR of the chest. Views: 1 view. COMPARISON: CR XR CHEST 2V PA LATERAL 08/15/2019 12:22 AM FINDINGS: Tubes, catheters and devices: Monitoring wires noted. Lungs: Unremarkable. No consolidation. Pleural spaces: Unremarkable. No pleural effusion. No pneumothorax. Heart/Mediastinum: Unremarkable. No cardiomegaly. Bones/joints: Chronic acromioclavicular separation noted how on the right, similar to previous. IMPRESSION: No acute cardiopulmonary abnormality. Dictated and Authenticated by: Alec Benites MD. Ordering:FLACA Wray MD
[2021-05-14 23:15] LABS: Albumin 3.8 g/dL (3.4-5.0); Alkaline Phosphatase 75 U/L (46-116); BUN 11 mg/dL (7-18); Bilirubin, Total 0.2 mg/dL (0.2-1.0); CREATININE 1.1 mg/dL (0.70-1.30); Calcium 8.3 mg/dL (8.5-10.1); Chloride 105 mmol/L (98-107); Glucose 132 mg/dL (74-106); Potassium 4.3 mmol/L (3.5-5.1); Sodium 141 mmol/L (136-145); Total Protein 7.4 g/dL (6.4-8.2)
[2021-05-14 23:16] LABS: ALT 26 U/L (16-63); AST 23 U/L (15-37); Anion Gap 8.8 mmol/L (3-11); CO2 27.2 mmol/L (21.0-32.0); Magnesium 2.2 mg/dL (1.8-2.4); Troponin I < 0.05 ng/mL (<0.06)
[2021-05-14 23:21] LABS: D-Dimer 274 ng/mlFEU (<500)
[2021-05-14 23:38] LABS: COVID-19 PCR Negative (Negative)
[2021-05-15] VITALS (7 sets, daily range): BP systolic 123–149; BP diastolic 70–93; PULSE 84–104; RESP 17–21; TEMP 36.8; O2SAT 91–96
--- NOTE | 2021-05-15 00:20 | NUR.NOTE ---
Nursing Note: Patient resting in bed at this time, no s/sx of pain or distress noted. Respirations even and non-labored. Denies any needs at this time. Easily arousable to voice. Call light within reach. Vitals improved from admission.
--- NOTE | 2021-05-15 01:15 | RT.EKG_ITS ---
APPROVED REPORT Exam: Resting ECG Reason for Exam: SOB Patient Location: E HR:97 bpm ECG Measurements Heart Rate 97 AXIS SC 169 P 75 QRSd 73 QRS 70 QT 336 T 51 QTc 427 Conclusion Sinus rhythm...normal P axis, V-rate 60- 99 Normal [place] I have reviewed and interpreted ECG and agree with software generated interpretation. There are no significant changes compared to prior EKG performed on 05/14/2021 at 22:35.
--- NOTE | 2021-05-15 01:29 | NUR.NOTE ---
Nursing Note: Patient continues to rest in bed at this time, alert and in distress. Monitors remains in place and vitals remain stable. MD updated on patient condition. No new orders at this time. Patient denies any needs, updated on wait time. Call light within reach.
[2021-05-15 01:50] LABS: Troponin I < 0.05 ng/mL (<0.06)
--- NOTE | 2021-05-15 10:35 | NUR.NOTE ---
message left on answering machine that covid result is negative.Nursing Note:
--- NOTE | 2021-05-18 12:35 | PDOC.ERCMPRO ---
- If Service Date Differs Date of service: 05/17/21 Time of Service: 12:35 Care Management Progress Note Loy is seen in the ED for dyspnea. At the request of ED provider, TAINA coordinates a referral to Dr. Schwartz of [facility], on-call provider, to assist Loy in obtaining a follow up appointment and in establishing care with a PCP.
== END 2021-05-15 02:07 | disposition home or self-care (01) ==
PROVIDERS: Emergency Medicine; Emergency Provider Emergency Medicine
DX: R06.00 Dyspnea, unspecified (principal); R07.89 Other chest pain; I10 Essential (primary) hypertension; Z87.891 Personal history of nicotine dependence; Z20.822 Contact with and (suspected) exposure to COVID-19; Z03.818 Encounter for observation for suspected exposure to other biological agents ruled out
CPT/HCPCS: 36415; 80053; 87635; 93005; 96360; 99285; 71045; 83735; 84484; 85025; 85379; 93010; 99284

== ENCOUNTER 2023-11-30 11:42 | Emergency (ER) | payer BC, SELFPAY ==
--- NOTE | 2023-11-30 11:45 | DI.RAD_ITS ---
Exam(s) XR CHEST 2V PA LATERAL EXAM: XR CHEST 2V PA LATERAL CLINICAL HISTORY: Cough chest pain TECHNIQUE: 2D digital imaging was performed of the chest. Two images were obtained. PA and lateral views were obtained. COMPARISON: CR,XR XR CHEST 2V PA LATERAL from 08/15/2019 FINDINGS: MEDIASTINUM: Normal. HEART: Normal. PULMONARY VASCULATURE: Normal. LUNGS: Clear. PLEURAL SPACE: No pleural effusion or pneumothorax. BONE:Within normal limits for the patient's age. No change in alignment of the right acromioclavicul ar joint. OTHER FINDINGS:Normal. IMPRESSION: No acute pulmonary findings. DATA REPOSITORY: RADIATION DOSE DELIVERED:
--- NOTE | 2023-11-30 11:45 | RT.EKG_ITS ---
APPROVED REPORT Exam: Resting ECG Reason for Exam: Chest pain Patient Location: E HR:83 bpm ECG Measurements Heart Rate 83 AXIS CA 178 P 77 QRSd 76 QRS 71 QT 380 T 43 QTc 447 Conclusion Sinus rhythm...normal P axis, V-rate 60- 99 Narrow complex normal sinus rhythm at a rate of 83. Normal axis. Intervals within normal limits. N o ST segment abnormalities. No T wave inversions. Significant artifact V1 and V2. No acute injury pattern. Appears similar to prior dated 3 years ago.
[2023-11-30 11:53] VITALS: BP 177/107; PULSE 88; RESP 18; TEMP 37.3; O2SAT 98
--- NOTE | 2023-11-30 11:54 | W.ED.GENAD ---
Discharge Plan Disposition Patient Disposition: Home Discharge Details Clinical Impression: Chest pain, unspecified, Elevated blood pressure reading with diagnosis of hypertension Primary Care Provider: Unknown,Unknown ED Provider: Storm Drew Discharge Instructions Additional Instructions: You are seen in the emergency department for your chest pain. Your blood work and EKG showed no sign of a heart attack. Your x-ray showed no sign of a pneumonia. Please follow-up with your primary care provider later this week. As we discussed, please return to the emergency department if you develop any sweating with your chest pain if your chest pain travels down your arm or if you pass out. For your pain please take medications as follows: 1. Take acetaminophen (Tylenol), 1,000 mg (two 500 mg tabs) every 6 hours [2. Take ibuprofen (Advil), 400 mg every 6 hours.] HPI General Date/Time Provider Initiated Documentation: 11/30/23 11:43. HPI Narrative: MDM This is an overall very well-appearing normothermic and not tachycardic 53-year-old male with elevated BMI and family history of coronary artery disease with chest pain concerning for the possibility of ACS for which patient will receive a single troponin based on the duration of time since his symptoms began and his nonischemic ECG. No fevers though patient has had a cough so we will obtain a chest x-ray to assess for pneumonia. No shortness of breath and no calf pain so my suspicion is low for pulmonary embolism so I did not obtain a D-dimer. No trauma to the chest so doubt pneumothorax. No tearing quality so doubt aortic dissection. Not hypotensive nor a dialysis patient making my suspicion low for tamponade. No rash to chest to suggest zoster. No history of recent emesis to suggest increased risk for esophageal rupture. Will reassess following labs and imaging. 12:40 PM CBC shows leukocytosis and macrocytosis without anemia. No thrombocytopenia. 12:57 PM Negative troponin. Basic metabolic panel with mild hyperglycemia but no anion gap and normal bicarbonate??not consistent with DKA. No RUSSELL. Patient blood pressure improved in the ED. I met with the patient and explained his reassuring findings. I advised that he return to the emergency department for any diaphoresis associated with the pain and any syncope associated with pain or any pain that radiates down his arm. Otherwise I advised acetaminophen and ibuprofen. He understood his return indications and was discharged with empiric trial of expectant outpatient management. 2:15 PM Text x-ray confirmed by radiology as unremarkable. Repeat blood pressure prior to discharge again elevated. Patient reports that this routinely occurs when he is at the hospital. He may have whitecoat hypertension but I advised PCP follow-up. Chronic conditions affecting the care of the patient: Elevated BMI History obtained from an outside historian: N/A External record review: N/A [Diagnostic interpretations performed by me: Per my independent interpretation chest x-ray shows: Per my independent interpretation EKG shows: Narrow complex normal sinus rhythm at a rate of 83. Normal axis. Intervals within normal limits. No ST segment abnormalities. No T wave inversions. Significant artifact V1 and V2. No acute injury pattern. Appears similar to prior dated 3 years ago. ]Medications: N/A Social determinants of health affecting disposition: N/A Management discussed with: N/A Treatment/interventions considered: N/A Response to therapies provided: N/A HPI This is a 53-year-old male arrived to the emergency department via private vehicle in setting of left-sided chest pain. Patient reports that for the past 2 weeks she has had a productive cough. He initially had a sore throat and this is resolved. He woke up this morning with a sharp left-sided chest pain while coughing. No radiation. No tearing quality. No fevers vomiting or abdominal pain. No history of coronary artery disease hypertension nor hyperlipidemia. Patient does note that he routinely has elevated blood pressures when he is to the emergency department. He is a daily tobacco user. Denies any trauma to the chest. 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 Father had a myocardial infarction when he was 48 years old. Patient occasionally drinks ethanol denies illicits. Exam General: Well-appearing in no acute distress speaking in complete sentences. Sitting upright no acute distress Head: Normocephalic, atraumatic. Eye: Extraocular eye movements intact. No conjunctival injection. No scleral icterus. Ear, nose, mouth, throat: Grossly normal inspection. Normal voice, handling secretions normally. Neck: Trachea midline. Cardiovascular: Well-perfused distal extremities. Respiratory: Nonlabored respiration. Clear lungs bilaterally Gastrointestinal: Nondistended abdomen. Soft nontender Musculoskeletal: No edema. Moving all 4 extremities spontaneously. Skin: Normal for age and race, grossly normal temperature and turgor. No acute rash. Neurologic: Alert and appropriate, no apparent acute deficits. Psychiatric: Mood and manner are appropriate. Grooming and personal hygiene are appropriate. Related Data Allergies Allergy/AdvReac Type Severity Reaction Status Date / Time Cephalosporins AdvReac Severe Anaphylaxsi Unverified 05/14/21 22:19 s General TOM: 3 Medical Decision Making Quality:SDOH Health Related Social Needs: No Data to Display PFSH All Active Problems (Updated 11/30/23 @ 14:21 by Storm Drew MD) Elevated blood pressure reading with diagnosis of hypertension (Acute) Chest pain, unspecified (Acute) Dyspnea, unspecified (Acute) Laceration of thumb (Acute) Shortness of breath (Acute) Surgical History RIGHT SHOULDER SURGERY 04/2009; [facility] Family History Mother Diabetes Father Heart disease Sister No problems noted. Sister No problems noted. Sister No problems noted. Sister No problems noted. Son No problems noted. Son No problems noted. Son No problems noted. Son Asthma Social History Smoking/Tobacco Use Status: Former Tobacco Use Quit Date: 01/24/21 Smoking risk assessment performed?: Yes Alcohol Intake: current Alcohol Intake frequency: 3 or more drinks per day Alcohol type: beer Drug use: Never Substance use type: does not use Do you feel safe at home: Yes Do you feel safe in your relationship?: Yes
[2023-11-30 12:02] VITALS: BP 138/75; PULSE 83; O2SAT 96
[2023-11-30 12:28] LABS: Abs Immature Grans 0.04 10^3/uL (0.0-0.06); Absolute Basophil Count 0.07 10^3/uL (0.0-0.2); Absolute Eosinophil Count 0.12 10^3/uL (0.0-0.7); Absolute Monocyte Count 0.64 10^3/uL (0.1-0.8); Absolute Neutrophil Count 8.49 10^3/uL (1.2-6.7); Basophils % 0.6 %; Eosinophils % 1.1 %; HCT 46.7 % (40.0-50.0); HGB 15.8 g/dL (13.5-17.5); Immature Grans % 0.4 %; Lymphocytes % 16.1 %; MCH 32.5 pg (27.0-33.0); MCHC 33.8 % (32.0-36.0); MCV 96 fL (80-95); MPV 9.8 fL (8.0-11.0); Monocytes % 5.7 %; Neutrophils % 76.1 %; Platelet Count 200 10^3/uL (130-400); RBC 4.86 10^6/uL (4.36-5.78); RDW 11.4 % (11.8-14.1); RDW-SD 40.2 fL; WBC 11.16 10^3/uL (4.4-10.8)
[2023-11-30 12:50] LABS: Anion Gap 9.2 mmol/L (3-11); BUN 11 mg/dL (7-18); CO2 26.8 mmol/L (21.0-32.0); CREATININE 0.9 mg/dL (0.70-1.30); Calcium 8.8 mg/dL (8.5-10.1); Chloride 104 mmol/L (98-107); Glucose 128 mg/dL (74-106); Potassium 4.3 mmol/L (3.5-5.1); Sodium 140 mmol/L (136-145); Troponin I < 50 ng/L (< or =60)
[2023-11-30 13:04] VITALS: BP 196/111; PULSE 86
[2023-11-30 13:08] VITALS: BP 196/111; PULSE 92; RESP 18; TEMP 36.9; O2SAT 94
== END 2023-11-30 13:15 | disposition home or self-care (01) ==
PROVIDERS: Emergency Provider Emergency Medicine
DX: R07.9 Chest pain, unspecified (principal); R03.0 Elevated blood-pressure reading, without diagnosis of hypertension; Z82.49 Family history of ischemic heart disease and other diseases of the circulatory system
CPT/HCPCS: 80048; 93005; 99285; 71046; 84484; 85025; 93010